=== PATIENT | female | born 1940 | race Caucasian/White ===

== ENCOUNTER 2016-08-26 07:03 | Emergency (ER) | payer MEDICARE ==
[2016-08-26] MEDS ORDERED: NEB-ALBUTEROL 2.5 MG/3 ML INH ONE (09:17)
[2016-08-26] MEDS ORDERED: DIPHENHYDRAMINE 50 MG/ML VIAL ONE (09:24)
[2016-08-26] MEDS ORDERED: METOCLOPRAMIDE 10 MG/2 ML VIAL ONE (09:24)
[2016-08-26] MEDS ORDERED: SODIUM CHLORIDE 0.9% 1,000 ML ONE (09:25)
[2016-08-26] MEDS ORDERED: KETOROLAC 30 MG/ML VIAL ONE (09:25)
== END 2016-08-26 11:57 | disposition home or self-care (01) ==
LOC: ER 07:03
DX: J00 Acute nasopharyngitis [common cold] (principal); J01.00 Acute maxillary sinusitis, unspecified; Z87.891 Personal history of nicotine dependence
CPT/HCPCS: 36415; 70450; 71020; 80053; 81001; 82553; 84439; 84443; 84484; 85025; 87804; 87880; 93005; 94640; 96361; 96374; 96375; 99285; J1885